=== PATIENT | female | born 1980 | race African-American/Black ===

== ENCOUNTER 2017-01-11 12:38 | Emergency (ER) | payer OTHER ==
[~2017-01-11 12:38] MED LIST: CATAPRES0.1 M1 PO; CATAPRES0.1 MG PO; HYDROCHLOROTHIA25 MG PO; LABETALOL HCL300 MG PO; NORMODYNE PO
== END 2017-01-11 12:56 | disposition home or self-care (01) ==
LOC: SED 12:38
DX: H65.93 Unspecified nonsuppurative otitis media, bilateral (principal); I10 Essential (primary) hypertension
CPT/HCPCS: 99282

== ENCOUNTER 2017-05-25 13:49 | Emergency (ER) | payer OTHER ==
--- NOTE | ~2017-05-25 | CR93 ---
[facility]. [facility] A Service of [facility] & [facility] RADIOLOGY TEXT RESULTS PATIENT: FABI POTTER LOCATION: SED : 80 UNIT #: [id number] AGE: [address]: Sharon Novoa MD SEX: F ORDER DR: [id number] [address] [address] [id number] MR#: [id number] Acc #: [id number] NAME: FABI POTTER : 1980 SEX: F STUDY DATE/TIME: 05/25/2017 15:43 UNIT: SED ROOM: STUDY DESCRIPTION: CR Elbow Min 3 Views Lt Attending Physician: Sharon Novoa M.D. Ordering Physician: Sharon Novoa M.D. Primary Care Physician: Primary Care Physician No MEDICAL IMAGING REPORT This report is preliminary unless electronic signature is present. EXAM Left elbow 3 views HISTORY Hit posterior elbow on chair this morning. FINDINGS AP and lateral examination of the elbow shows satisfactory articulation of the humerus with the proximal radius and ulna. There is no identifiable fracture, dislocation, joint effusion, or radiopaque foreign body in the soft tissues. IMPRESSION Normal left elbow. Dictated by... Sony Demarco M.D. THIS IS AN ELECTRONICALLY VERIFIED REPORT Sony Demarco M.D. at 05/26/2017 7:36 PM Alexa TD: 05/26/2017 14:13 JOB #: [id number] MEDICAL IMAGING REPORT Page 1 of 1
--- NOTE | ~2017-05-25 | EKG ---
PATIENT: FABI POTTER UNIT #: [id number] Ventricular Rate: 92 BPM Atrial Rate: 92 BPM P-R Interval: 168 ms QRS Duration: 86 ms Q-T Interval: 388 ms QTC Calculation(Bezet): 479 ms P [place]: 47 degrees Calculated R [place]: 4 degrees Calculated T [place]: 147 degrees Diagnosis Line: Normal sinus rhythm Diagnosis Line: Voltage criteria for left ventricular hypertrophy Diagnosis Line: T wave abnormality, consider lateral ischemia Diagnosis Line: Prolonged QT Diagnosis Line: Abnormal ECG Diagnosis Line: When compared with ECG of 04-OCT-2016 17:45, Diagnosis Line: No significant change was found Diagnosis Line: Confirmed by DOTTIE SEWELL MD ([id number]) on Diagnosis Line: 05/29/2017 11:17:25 AM INTERPRETING MD: DONATO ANGELES
[2017-05-25] MEDS ORDERED: NORMODYNE PO (13:52)
[2017-05-25 15:30] LABS: BASOPHIL% 0.6 % (0-2.5); DIFF IND NO; EOSINOPHIL# 0.1 X10e3 (0-0.7); EOSINOPHIL% 1.8 % (0.0-7.0); HEMATOCRIT 29.2 % (35.0-45.0); HEMOGLOBIN 8.9 gm/dL (12.0-16.0); LYMPHOCYTE# 1.4 X10e3 (1.0-3.5); LYMPHOCYTE% 19.5 % (17.0-45.0); MEAN CELL VOLUME 69.1 FL (83-96); MEAN CORPUSCULAR HEMOGLOBIN 21.1 PG (28-34); MEAN CORPUSCULAR HGB CONC 30.6 g/dL (30-36); MEAN PLATELET VOLUME 8.6 FL (6.5-11.5); MONOCYTE# 0.6 X10e3 (0-1.0); MONOCYTE% 7.7 % (3.0-12.0); NEUTROPHIL# 5.2 X10e3 (1.5-7.1); NEUTROPHIL% 70.4 % (40-75); PLATELET COUNT 236 X10e3 (140-420); RED BLOOD COUNT 4.23 X10e (3.90-5.30); RED CELL DISTRIBUTION WIDTH 19.2 % (11.0-15.5); WHITE BLOOD COUNT 7.4 X10e3 (4.0-10.5)
[2017-05-25 15:38] LABS: POC - CKMB <1.0 ng/mL (0.0-7.9); POC - MYOGLOBIN 35.7 ng/mL (0.0-169.0); POC - TROPONIN <0.05 ng/mL (<=0.05)
[2017-05-25 15:44] LABS: CALCIUM SERUM 8.9 mg/dL (8.4-10.2); CREATININE SERUM 0.8 mg/dL (0.6-1.4)
[2017-05-25 15:48] LABS: POTASSIUM 3.2 mmol/L (3.5-5.1)
== END 2017-05-25 16:28 | disposition home or self-care (01) ==
LOC: SED 13:49
PROVIDERS: Student in an Organized Health Care Education/Training Program
DX: S53.402A Unspecified sprain of left elbow, initial encounter (principal); I10 Essential (primary) hypertension; D64.9 Anemia, unspecified; Z79.899 Other long term (current) drug therapy; W22.8XXA Striking against or struck by other objects, initial encounter; Y92.9 Unspecified place or not applicable
CPT/HCPCS: 29260; 36415; 73080; 80048; 82553; 83874; 84484; 85025; 93005; 99284